=== PATIENT | male | born 1975 | race Caucasian/White ===

== ENCOUNTER 2022-11-24 10:49 | Emergency (ER) | payer OTHER ==
[~2022-11-24] VITALS: Ht 167.6 cm; Wt 77.1 kg
[2022-11-24 11:11] VITALS: BP 130/83; PULSE 80; RESP 16; O2SAT 99
== END 2022-11-24 14:22 | disposition left against medical advice (07) ==
LOC: EDH 10:49
DX: M79.604 Pain in right leg (principal); Z53.21 Procedure and treatment not carried out due to patient leaving prior to being seen by health care provider
CPT/HCPCS: 99281